=== PATIENT | female | born 1940 | race Caucasian/White ===

== ENCOUNTER 2020-12-03 10:36 | Outpatient (CLI) | payer MEDICARE, OTHER, SELFPAY ==
--- NOTE | 2020-12-03 10:50 | XR_ITS ---
WS: [id number] HIP WITH PELVIS LEFT TECHNIQUE: 3 views of the left hip with pelvis CLINICAL INFORMATION: M25.552 - Pain in left hip COMPARISON: None. FINDINGS: Normal anatomic alignment. 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 No acute fra ctures. Normal pubic rami. XR/XR hip LT 2-3V wo/w pel* [id number] IMPRESSION: Mild degenerative arthritis. No acute fractures. Tonnis classification: grade 2: small cysts in femoral head/acetabulum or moder ate joint space narrowing or moderate loss of head sphericity
--- NOTE | 2020-12-03 10:50 | XR_ITS ---
WS: [id number] KNEE RIGHT TECHNIQUE: 3 views of the right knee CLINICAL INFORMATION: M25.561 - Pain in right knee COMPARISON: None. FINDINGS: Normal anatomic alignment. No acute fractures. Mild soft tissue edema. Moderate suprapatellar effusio n. Mild tricompartmental arthritis. XR/XR knee RT 3V* [id number] IMPRESSION: 1. Mild tricompartmental arthritis. 2. Soft tissue edema with moderate suprapatellar effusion. 3. No visualized fractures. Kellgren-Khanh Classification: grade 2 (minimal): definite osteophytes and p ossible joint space narrowing
--- NOTE | 2020-12-03 10:50 | XR_ITS ---
WS: [id number] LUMBAR SPINE TECHNIQUE: 3 views of the lumbar spine CLINICAL INFORMATION: M54.5 - Low back pain COMPARISON: None. FINDINGS: Five [id number] lumbar vertebral bodies. Moderate lumbar curve convex left. Grade 1 anterolisthe sis L4 on L5 measuring 6 mm. Disc space narrowing worse at L2-3, L3-4, L4-L5, and L5-S1. Moderate fac et arthropathy L5-S1. XR/XR lumbar spine 2-3V* [id number] IMPRESSION: 1. Moderate lumbar curve convex left. 2. Disc space narrowing worse at L2-3, L3-4, L4-5, and L5-S1. 3. Grade 1 anterolisthesis L4 on L5 measuring 6 mm.
== END 2020-12-03 10:37 | disposition home or self-care (01) ==
PROVIDERS: PCP Nurse Practitioner Family; Visit Provider Nurse Practitioner Family
DX: M25.552 Pain in left hip (principal); M25.561 Pain in right knee; M54.5 Low back pain; R60.0 Localized edema; M16.12 Unilateral primary osteoarthritis, left hip; M17.11 Unilateral primary osteoarthritis, right knee
CPT/HCPCS: 72100; 73502; 73562; 80053; 85025

== ENCOUNTER → 2020-12-13 09:07 | Outpatient (BNVA) | payer MEDICARE, OTHER, SELFPAY | PROVIDERS: PCP Nurse Practitioner Family; Referring Provider Nurse Practitioner Family; Visit Provider Orthopaedic Surgery | DX: M54.42 Lumbago with sciatica, left side (principal); M53.3 Sacrococcygeal disorders, not elsewhere classified | CPT/HCPCS: 72120 ==

== ENCOUNTER → 2025-03-27 12:34 | Outpatient (BNVA) | payer MEDICARE, OTHER, SELFPAY | PROVIDERS: PCP Nurse Practitioner Family; Visit Provider Nurse Practitioner Family | DX: Z13.6 Encounter for screening for cardiovascular disorders (principal); R53.83 Other fatigue | CPT/HCPCS: 80053; 80061; 82607; 84443; 85025 ==

== ENCOUNTER → 2025-05-05 10:03 | Outpatient (BNVA) | payer MEDICARE, OTHER, SELFPAY | PROVIDERS: PCP Nurse Practitioner Family; Visit Provider Podiatrist Foot & Ankle Surgery | DX: I73.9 Peripheral vascular disease, unspecified (principal); L60.3 Nail dystrophy; L84 Corns and callosities; L60.0 Ingrowing nail | CPT/HCPCS: 11055; 11721; 99203 ==